=== PATIENT | male | born 1970 | race African-American/Black ===

== ENCOUNTER → 2016-09-02 | Outpatient (CLI) | payer OTHER ==
--- NOTE | ~2016-09-02 | EE ---
Unit #: [id number] #: [id number] Patient: VANESSA LEON [id number] [address] [id number] O MR#: [id number] NAME: VANESSA LEON : 1970 SEX: M STUDY DATE/TIME: 09/02/2016 UNIT: CEEG ROOM: STUDY DESCRIPTION: EEG Attending Physician: Trixie Mo M.D. Referring Physician: Trixie oM M.D. Primary Care Physician: Karina Nails NEURODIAGNOSTICS REPORT EXAM EEG REASON FOR STUDY Seizures. TECH FREEjit TECHNICAL INFORMATION This is a routine EEG performed using the standard International 10-20 System of electrode placement. Hyperventilation was performed. Photic stimulation was also performed. REPORT Throughout the entire study, the best background rhythm seen is approximately 9-10 Hz. This rhythm is seen in both posterior head regions symmetrically and does attenuate to eye opening and closure. Photic stimulation was performed which did not elicit any epileptiform abnormalities. However, a decent photic driving response was seen. Hyperventilation was also performed which did not elicit any abnormal buildup. There was no sleep recorded during the EEG. Throughout the entire study, there were no electrographic seizures recorded nor were there any independent epileptiform abnormalities seen. INTERPRETATION This is a normal awake EEG. A normal EEG does not rule out the possibility of a seizure disorder. Clinical correlation is advised. Dictated by... Bernabe Cadena II., M.D. GWS/ely TD: 09/02/2016 12:13 JOB #: [id number] Unit #: [id number] #: [id number] Patient: VANESSA LEON NEURODIAGNOSTICS REPORT Page 1 of 1 X NEURODIAGNOSTICS REPORT
== END | disposition home or self-care (01) ==
LOC: CEEG 07:03
DX: R56.9 Unspecified convulsions (principal)
CPT/HCPCS: 95816